=== PATIENT | male | born 1965 | race Caucasian/White ===

== ENCOUNTER 2021-06-07 00:42 | Emergency (ER) | payer MEDICAID, SELFPAY ==
[2021-06-07 00:43] VITALS: BP 141/99; PULSE 112; RESP 22; TEMP 37; BMI 40.8
--- NOTE | 2021-06-07 00:58 | EKG12_ITS ---
Test Reason : CP Blood Pressure : / mmHG Vent. Rate : 102 BPM Atrial Rate : 102 BPM P-R Int : 128 ms QRS Dur : 096 ms QT Int : 370 ms P-R-T Axes : 080 058 -01 degrees QTc Int : 482 ms Sinus tachycardia with Premature atrial complexes nonspecific ST/T Wave abnormality Abnormal ECG Confirmed by ELVIA MCCARTHY, LUIS MANUEL ([id number]), legal editor HIRAM GODFREY ([id number]) on 06/07/2021 2:20:20 PM Referred By: DIANA Confirmed By:LUIS MANUEL GAN MD
--- NOTE | 2021-06-07 00:58 | EDS_ITS ---
HPI History of Present Illness Chief Complaint: Chest Pain Informant: patient Narrative Narrative: 56-year-old male arriving to the emergency department with a chief complaint of chest pain. Patient states that approximately 1130 began to feel what he describes as indigestion burning sensation in the center of his chest that radiates to his back and made his jaw and his left arm feel abnormal. He denies any nausea or shortness of breath. He states that he was admitted in [place] last fall had a heart catheterization and believes he had some heart stents but is not sure. He has not take any Plavix or Brilinta. He states that he is on a lot of medicine but not really sure what they are what they are for. He would like to know why he is having this pain. He tells me that on Sunday late night he had similar symptoms that seem to get better with Tums but then recurred. On Sunday he states he was asymptomatic and was asymptomatic throughout the day. This evening he ate a burger and has not had anything to eat for several hours. [facility] Medical History Diabetes Hypertension Allergy/AdvReac Type Severity Reaction Status Date / Time No Known Allergies Allergy Verified 06/07/21 00:46 Surgical History History of heart artery stent Social History (Updated 06/07/21 @ 01:[address] Rafa Barros DO) Smoking Status: Current every day smoker tobacco type: cigarettes substance use type: does not use ROS ROS ED Constitutional Constitutional ED: Denies chills or weight loss Eyes Eyes: Denies change in vision or diplopia ENT ENT ED: Denies ear pain, rhinorrhea or sore throat Cardiovascular Cardiovascular: Reports chest pain; Denies orthopnea, palpitations or racing heartbeat Respiratory/Chest Respiratory/Chest: Denies cough, dyspnea or orthopnea Gastrointestinal Gastrointestinal: Denies abdominal pain, diarrhea, nausea or vomiting Genitourinary Genitourinary ED: Denies dysuria, hematuria or urinary frequency Musculoskeletal Musculoskeletal: Denies arthralgias or myalgias Integumentary Denies abscess or rash Neurologic Neurologic: Denies headache(s) or weakness Psychiatric Psychiatric: Denies anxiety, depression, suicidal ideation or suicidal thoughts Endocrine Endocrinology: Denies polydipsia, polyphagia or polyuria Allergic/Immunologic Allergic/Immunologic ED: Denies mouth swelling, tongue swelling or urticaria EXAM Physical Exam Const Vital Signs: 06/07/21 00:43 Temperature 98.6 F Temperature Source Oral Pulse Rate 112 H Respiratory Rate 22 H Blood Pressure 141/99 H Blood Pressure Mean 113 Oxygen Delivery Method Room Air Positive well nourished, well developed and obese General Appearance ED: well developed Nutritional Appearance: obese HEENT Reports normocephalic, head/scalp atraumatic and moist mucous membranes; Denies TM's clear normocephalic and atraumatic Tympanic Membrane ED: Negative for TM's clear Eyes PERRL and EOMs intact bilaterally Neck no lymphadenopathy, supple and no JVD Resp normal respiratory effort and clear to auscultation bilaterally Cardio regular rate, regular rhythm and no murmurs GI normal to inspection, nondistended, normoactive bowel sounds and non-tender Palpation: soft Back/Spine no CVA tenderness and normal ROM Extremity normal to inspection General Extremety ED: Negative for edema General Extremity: Negative for edema Neuro oriented x3 and CN's II-XII intact bilaterally Sensorium / Orientation: alert Motor Exam: strength 5/5 throughout Psych mental status grossly normal Mood & Affect: Negative for depressed or tearful Skin no rashes or lesions noted and no wounds Heart Score History: Slightly/Non-Suspicious ECG: Nonspecific Repolarization Age: >45 - <65 years Risk Factors: >/= 3 Risk Factors or History of CAD Troponin: </= Normal Limit Score: 4 MDM MDM MDM Narrative Medical decision making narrative: Patient's had no events on the monitor. White count is normal at 7.6. Potassium slightly low at 3.0 glucose 139. D- dimer normal at 0.34. 2 sets of cardiac enzymes were negative. Patient tells me he quit drinking about a week ago had several days of withdrawal symptoms. This is intermittent in nature described as burning in the chest rating to the back that got partial relief with Tums a couple days ago. No placed him on PPI as well as some Carafate have him follow-up with primary care. Unfortunately I was not able to get a hold of any records from [place] to see exactly what last fall's visit was about. Lab Data Attestation: I reviewed the patient's lab results. Labs: Laboratory Results - last 24 hr 06/07/21 06/07/21 06/07/21 00:53 00:53 00:53 WBC 7.6 RBC 5.02 Hgb 15.3 Hct 45.6 MCV 90.8 MCH 30.5 MCHC 33.6 RDW Std Deviation 47.9 H RDW Coeff of Vlad 14.3 Plt Count 202 MPV 9.4 Immature Gran % (Auto) 0.700 Neut % (Auto) 60.8 Lymph % (Auto) 20.7 [place] % (Auto) 14.7 H Eos % (Auto) 2.6 Baso % (Auto) 0.5 Absolute Neuts (auto) 4.6 Absolute Lymphs (auto) 1.57 Nucleated RBC % 0 D-Dimer Quant (PE/DVT) 0.34 Sodium 133 L Potassium 3.0 L Chloride 96 L Carbon Dioxide 24.0 Anion Gap 13 BUN 22 H Creatinine 0.85 Estim Creat Clear Calc 110.97 Est GFR (MDRD) Af Amer 120 Est GFR (MDRD) Non-Af 99 BUN/Creatinine Ratio 25.8 H Glucose 139 H Calcium 9.0 Troponin I High Sens 24 06/07/21 02:53 WBC RBC Hgb Hct MCV MCH MCHC RDW Std Deviation RDW Coeff of Vlad Plt Count MPV Immature Gran % (Auto) Neut % (Auto) Lymph % (Auto) [place] % (Auto) Eos % (Auto) Baso % (Auto) Absolute Neuts (auto) Absolute Lymphs (auto) Nucleated RBC % D-Dimer Quant (PE/DVT) Sodium Potassium Chloride Carbon Dioxide Anion Gap BUN Creatinine Estim Creat Clear Calc Est GFR (MDRD) Af Amer Est GFR (MDRD) Non-Af BUN/Creatinine Ratio Glucose Calcium Troponin I High Sens 32 Radiography Diagnostic Testing: Clinical Impression(s) from Imaging Studies Chest X-Ray 06/07/21 00:58 IMPRESSION: Negative x-ray examination of the chest. Electronically Signed: Yves Cade MD at 1:16 EST Tel , Service support , EKG Initial EKG: Attestation: I personally reviewed and interpreted this EKG as follows: Comments: Sinus tachycardia with a ventricular rate of 102 bpm. Noted PACs. Follow-up EKG: Attestation: I personally reviewed and interpreted this EKG as follows: Comments: Normal sinus rhythm with a ventricular rate of 88 bpm. PAC noted. Discharge Plan Triage Chief Complaint: Chest Pain ED Provider: Rafa Barros Dx/Rx/DC Orders Primary Care Provider: Pebbles Meredith NP
--- NOTE | 2021-06-07 00:58 | RAD_ITS ---
STUDY: X-RAY CHEST REASON FOR EXAM: Male, 56 years old. chest pain TECHNIQUE: AP portable COMPARISON: None. FINDINGS: The lungs are clear and expanded. There is no demonstrated pleural abnormality. Normal size heart. Normal mediastinum and renny. Normal visualized pulmonary arteries. Normal visualized aortic arch and descending thoracic aorta. Normal visualized thoracic spine. Normal visualized ribs, clavicles, and shoulders. There is no demonstrated abnormality of the visualized soft tissue structures of the upper abdomen. RAD/Chest 1 View (Portable) IMPRESSION: Negative x-ray examination of the chest. Electronically Signed: Yves Cade MD at 1:16 EST Tel , Service support ,
[2021-06-07 01:04] LABS: Absolute Lymphocyte Count 1.57 X10^3/uL (0.83-4.51); Absolute Neutrophil Count 4.6 X10^3/uL (2.0-7.7); Basophil# 0.04 X10^3/uL; Basophil% 0.5 % (0-1); Eosinophils% 2.6 % (0-5); Hematocrit 45.6 % (40-54); Hemoglobin 15.3 g/dL (13.0-16.5); Lymphocyte # 1.57 X10^3/ul (0.83-4.51); Lymphocyte % 20.7 % (19-41); Mean Corp Hgb Conc 33.6 g/dL (32-36); Mean Corpuscular Hgb 30.5 pg (27.0-32.0); Mean Corpuscular Volume 90.8 fL (80-94); Mean Platelet Vol. 9.4 fl (6.2-12.0); Monocyte# 1.11 X10^3/uL; Monocyte% 14.7 % (0-10); NRBC Flagged by Analyzer 0 % (0-5); Neutrophil % 60.8 % (47-70); Platelet Count 202 K/mm3 (150-450); RBC Distribution Width CV 14.3 % (11.6-14.6); RBC Distribution Width SD 47.9 fl (35.1-43.9); Red Blood Count 5.02 M/mm3 (4.6-6.2); White Blood Count 7.6 K/mm3 (4.4-11.0)
[2021-06-07 01:13] LABS: D-Dimer Quantitative (DVT/PE) 0.34 FEU/ug/m (0.27-0.49)
[2021-06-07 01:20] LABS: Anion Gap 13 (5-15); BUN 22 mg/dL (7-18); BUN/Creat Ratio 25.8 RATIO (10-20); Chloride 96 mmol/L (98-107); Creatinine, Serum 0.85 mg/dL (0.70-1.30); EST Glomerular Filtration Rate 99 mL/min (>60); Est Glom Filt Rate - Afr Amer 120 mL/min (>60); Estimated Creatinine Clearance 110.97 ml/min; Glucose 139 mg/dL (74-106); Sodium Level 133 mmol/L (136-145); Troponin-I HS 24 pg/mL (3.0-78.0)
--- NOTE | 2021-06-07 03:25 | EKG12_ITS ---
Test Reason : REPEAT Blood Pressure : / mmHG Vent. Rate : 088 BPM Atrial Rate : 088 BPM P-R Int : 126 ms QRS Dur : 106 ms QT Int : 404 ms P-R-T Axes : 083 058 017 degrees QTc Int : 488 ms Normal sinus rhythm Nonspecific ST abnormality Prolonged QT Abnormal ECG Confirmed by ELVIA MCCARTHY, LUIS MANUEL ([id number]), newspaper photo editor HIRAM GODFREY ([id number]) on 06/07/2021 2:21:22 PM Referred By: Confirmed By:LUIS MANUEL GAN MD
[2021-06-07 03:33] LABS: Troponin-I HS 32 pg/mL (3.0-78.0)
[2021-06-07 04:26] VITALS: BP 132/84; PULSE 88; RESP 22; O2SAT 97
--- NOTE | 2021-06-07 04:59 | EKG12_ITS ---
Test Reason : REPEAT Blood Pressure : / mmHG Vent. Rate : 185 BPM Atrial Rate : 187 BPM P-R Int : 000 ms QRS Dur : 098 ms QT Int : 268 ms P-R-T Axes : 000 065 269 degrees QTc Int : 470 ms Supraventricular tachycardia Nonspecific ST and T wave abnormality Abnormal ECG Confirmed by ELVIA MCCARTHY, LUIS MANUEL ([id number]), newspaper photo editor ANICETO SHARIF ([id number]) on 06/08/2021 11:08:41 AM Referred By: Confirmed By:LUIS MANUEL GAN MD
[2021-06-07 05:59] VITALS: BP 144/70; PULSE 93; RESP 23; O2SAT 97
== END 2021-06-07 08:24 | disposition home or self-care (01) ==
PROVIDERS: Emergency Provider Emergency Medicine; PCP Nurse Practitioner Primary Care; Visit Provider Emergency Medicine
DX: R07.9 Chest pain, unspecified (principal); E11.9 Type 2 diabetes mellitus without complications; I10 Essential (primary) hypertension; F17.210 Nicotine dependence, cigarettes, uncomplicated; E66.9 Obesity, unspecified; Z79.84 Long term (current) use of oral hypoglycemic drugs; Z79.899 Other long term (current) drug therapy
CPT/HCPCS: 71045; 80048; 84484; 85025; 85379; 93005; 99285; A4216